=== PATIENT | female | born 1965 | race Caucasian/White ===

== ENCOUNTER 2024-08-31 12:57 | Emergency (ER) | payer OTHER, SELFPAY ==
[2024-08-31 13:06] VITALS: BP 113/75; PULSE 92; RESP 20; TEMP 36.8; O2SAT 98
--- NOTE | 2024-08-31 14:49 | ED.GENADULT ---
HPI - General Adult General Chief complaint: Upper Respiratory Infection Stated complaint: Cough/Sore Throat/Chest Congestion Source: patient Mode of arrival: ambulatory Limitations: no limitations History of Present Illness HPI narrative: Patient presents for evaluation of sinus symptoms for last 7 days. Symptoms include sinus congestion, thick yellow nasal drainage and sore throat 2/2 postnasal drainage. She denies fever, chills, nausea, vomiting, diarrhea, cough or SOB. She smokes 1/2 ppd. She has been taking tylenol for her symptoms. No recent sick contacts to her knowledge. Related Data Home Medications Medication Instructions Recorded Confirmed hydrochlorothiazide 12.5 mg tablet 12.5 mg PO DAILY 08/31/24 08/31/24 valsartan 320 mg tablet 320 mg PO DAILY 08/31/24 08/31/24 Allergies Allergy/AdvReac Type Severity Reaction Status Date / Time codeine Allergy Unknown Rash Verified 08/31/24 13:48 Review of Systems Review of Systems: CONSTITUTIONAL: Denies fever, chills, or sweats. EYES: Denies visual changes, redness, or discharge. ENT: Reports sinus congestion, thick yellow nasal drainage and sore throat 2/2 postnasal drainage. CARDIOVASCULAR: Denies chest pain, palpitations, or edema. RESPIRATORY: Denies cough or dyspnea. GASTROINTESTINAL: Denies abdominal pain, nausea, vomiting, or diarrhea. GENITOURINARY: Denies dysuria or hematuria. SKIN: Denies rash or itching. MUSCULOSKELETAL: Denies back pain, joint pain, or myalgia. NEUROLOGIC: Denies headache, numbness, dizziness, or weakness. PSYCHIATRIC: Denies anxiety or depression. [facility]LY [facility] Past Medical History Medical History No pertinent past medical history Surgical History Surgical History No pertinent past surgical history Family History Family History Mother Family history non-contributory Social History Social History Smoking packs per day: 0.5 Smoking cigarettes per day: 10.0 Smoking status: Current every day smoker Substance use: never Gender identity (if verbalized by the patient): Female Spiritual care concerns: No Course Course Emergency Course: GENERAL: Well-appearing, well-nourished, and in no acute distress. HEAD: Normocephalic, atraumatic. EYES: PERRLA and EOMI. ENT: bilateral maxillary sinus tenderness. Mucous membranes moist. Oropharynx without tonsillar hypertrophy exudate or other lesions. Bilateral TMs pearly woods nonbulging NECK: Supple. No adenopathy or masses. No carotid bruits or JVD CHEST: Clear to auscultation. No respiratory distress. No wheezes rales or rhonchi HEART: Regular rate and rhythm. No murmur heard. Normal peripheral pulses. ABDOMEN: Soft, nontender, nondistended, normal active bowel sounds. EXTREMITIES: Normal range of motion. No edema. SKIN: Warm, dry, no rash. NEURO: No focal deficits. Alert and oriented x3. PSYCH: Normal mood and affect. Level of Care: Express Care Visit Vital Signs Vital signs: Vital Signs Temperature 36.8 C 08/31/24 13:06 Pulse Rate 92 08/31/24 13:06 Respiratory Rate 20 08/31/24 13:06 Blood Pressure 113/75 08/31/24 13:06 Pulse Oximetry 98 08/31/24 13:06 Oxygen Delivery Room Air 08/31/24 13:06 Temperature 36.8 C 08/31/24 13:06 Pulse Rate 92 08/31/24 13:06 Respiratory Rate 20 08/31/24 13:06 Blood Pressure 113/75 08/31/24 13:06 Pulse Oximetry 98 08/31/24 13:06 Oxygen Delivery Room Air 08/31/24 13:06 Medical Decision Making MDM Narrative Medical decision making narrative: This is a 59-year-old female presented for evaluation of sinus symptoms. She meets criteria for bacterial sinusitis based upon the time in which she has been symptomatic and the nature for discharge. Will discharge with Augmentin. Advised smoking cessation. Follow up with primary provider. Go to the emergency department for worsening symptoms. Patient in agreement with plan of care. Vital Signs Vital Signs: Vital Signs Temperature 36.8 C 08/31/24 13:06 Pulse Rate 92 08/31/24 13:06 Respiratory Rate 20 08/31/24 13:06 Blood Pressure 113/75 08/31/24 13:06 Pulse Oximetry 98 08/31/24 13:06 Oxygen Delivery Room Air 08/31/24 13:06 Temperature 36.8 C 08/31/24 13:06 Pulse Rate 92 08/31/24 13:06 Respiratory Rate 20 08/31/24 13:06 Blood Pressure 113/75 08/31/24 13:06 Pulse Oximetry 98 08/31/24 13:06 Oxygen Delivery Room Air 08/31/24 13:06 Discharge Plan Discharge Clinical Impression: Sinusitis Patient Disposition: Home, Self-Care Condition: Stable Instructions: Antibiotic Form, Sinusitis (ED) Patient Language: Ukrainian Prescriptions: New amoxicillin-pot clavulanate 875-125 mg tablet 1 tablet PO Q12H Qty: 20 0RF No Action hydrochlorothiazide 12.5 mg tablet 12.5 mg PO DAILY valsartan 320 mg tablet 320 mg PO DAILY Follow-up/Referrals: Main Mireles MD [Physician] - Time of Disposition: 14:47
== END 2024-08-31 14:50 | disposition home or self-care (01) ==
PROVIDERS: Emergency Provider Nurse Practitioner
DX: J32.9 Chronic sinusitis, unspecified (principal); F17.210 Nicotine dependence, cigarettes, uncomplicated; F17.200 Nicotine dependence, unspecified, uncomplicated
CPT/HCPCS: 99203; G0463